=== PATIENT | male | born 1975 | race Caucasian/White ===

== ENCOUNTER 2018-04-17 19:26 | Emergency (ER) | payer OTHER ==
[2018-04-17] MEDS ORDERED: GABAPENTIN 300 MG CAP PO ONE ×2 (19:37→21:04)
[2018-04-17] MEDS ORDERED: DIAZEPAM 5 MG TAB PO ONE ×2 (19:37→21:04)
[2018-04-17] MEDS ORDERED: LIDOCAINE 4%/MENTHOL 1% PATCH TD ONE (19:37)
[2018-04-17] MEDS ORDERED: OXYCODONE/APAP 5/325 TAB PO ONE ×2 (19:38→21:04)
--- NOTE | 2018-04-17 19:39 | EDPHY ---
H & P Stated Complaint: Slip on ice, Fell straight, Lower back and R side pain Time Seen by Provider: 04/17/18 19:35 HPI/ROS: HPI: This is a 43-year-old male who presents with Chief Complaint: Slip on ice, Fell straight, Lower back and R side pain Location: Mid and lower back Quality: Injury Duration: 1 hr prior to arrival Signs and Symptoms: No bleeding, no radiation, no numbness, no weakness, no tingling, no incontinence, + decreased range of motion, no swelling, + pain, no fever Timing: Acute Severity: 02/12 Context: Patient was walking out of his driveway when he accidentally slipped on the ice landing on mid and back on the right side. He sustained an abrasion to the right mid and lower back. Denies LOC/head injury/neck pain/dizziness/ nausea/vomiting/amnesia. He was slow to get up but able to be ambulatory with no assistance. Denies change in bowel or bladder habits. Denies any radiation , weakness. Pain is increased with any range of motion. Modifying Factors: None Comment: ROS: A comprehensive 10 system review of systems is otherwise negative aside from elements mentioned in the history of present illness. MEDICAL/SURGICAL/SOCIAL HISTORY: Medical history: Generally healthy. Does not take any regular medications. Surgical history: Denies Social history: Never smoked. . CONSTITUTIONAL: Polite and cooperative, mild distress, middle-aged white male, awake and alert HEENT: Atraumatic and normocephalic. NECK: supple, no midline tenderness, flexion 45 degrees, extension 45 degrees, right and left lateral flexion 45 degrees. No meningismus. Cardiovascular: Normal S1/S2, regular rate, regular rhythm, without murmur rub or gallop. PULMONARY/CHEST: Symmetrical and nontender. no crepitus. Clear to auscultation bilaterally. Good air movement. No accessory muscle usage. ABDOMEN: Soft, nondistended, nontender, no ecchymosis. PELVIC: no pain with rocking; bilateral hips flexion 125 degrees, extension 30 degrees, with no pain internal rotation and no pain external rotation. BACK: No midline tenderness, right-sided lower thoracic and upper lumbar reproducible paraspinous tenderness; abrasion noted to the lower thoracic and upper lumbar right side measuring approximately 6 in x 2 in-no active bleeding. no paraspinous spasm, deep tendon reflexes 2/2, mild pain with straight leg raise, No foot drop. Achilles reflexes are equal bilaterally. EXTREMITIES: 2/2 pulses, strength 5/5, DIP/PIP/MCP flexion/extension intact with good light touch sensation. no deformities, no clubbing, no cyanosis or edema. NEUROLOGICAL: no focal neuro deficits. GCS 15. Light touch sensation intact. SKIN: Warm and dry, no erythema. no rash. Good capillary refill. Source: Patient Exam Limitations: No limitations - Personal History Current Tetanus Diphtheria and Acellular Pertussis (TDAP): Yes - Medical/Surgical History Hx Asthma: No Hx Chronic Respiratory Disease: No Hx Diabetes: No Hx Cardiac Disease: No Hx Renal Disease: No Hx Cirrhosis: No Hx Alcoholism: No Hx HIV/AIDS: No Hx Splenectomy or Spleen Trauma: No Other PMH: Denies - Social History Smoking Status: Never smoked Constitutional: Initial Vital Signs Temperature (C) 36.9 C 04/17/18 19:30 Heart Rate 63 04/17/18 19:30 Respiratory Rate 17 04/17/18 19:30 Blood Pressure 151/94 H 04/17/18 19:30 O2 Sat (%) 98 04/17/18 19:30 O2 Delivery Mode Room Air Allergies/Adverse Reactions: No Known Allergies Allergy (Unverified 04/17/18 19:27) Home Medications: Medication Instructions Recorded Cyclobenzaprine [Flexeril 10 MG 10 mg PO TID PRN #15 tab 04/17/18 (*)] oxyCODONE/APAP 5/325 [Percocet 1 - 2 tab PO Q4H PRN #12 tab 04/17/18 5/325 (*)] Medical Decision Making - Diagnostics Imaging Results: Imaging Impressions Lumbar Spine X-Ray 04/17/18 19:38 Impression: Nothing acute in the lumbar spine radiographically. Thoracic Spine X-Ray 04/17/18 19:38 Impression: Early arthritis. Nothing acute radiographically. Lumbar Spine MRI 04/17/18 22:06 Impression: 1. No evidence for significant canal or foraminal stenosis at any level. 2. Facet arthropathy predominantly at L4-L5 and L5-S1 bilaterally. 3. Mild bilateral foraminal stenosis at L4-L5, and mild to moderate at L5-S1, due to small central disk bulge and facet disease. Findings and recommendations discussed with Allie Reeder at 11:20 p.m. on 2017. Final report concurs with initial preliminary interpretation. Thoracic Spine MRI 04/17/18 22:06 Impression: Normal MRI of the thoracic spine without contrast. Findings and recommendations discussed with Allie Reeder at 11:21 p.m. on 2017. Final report concurs with initial preliminary interpretation. ED Course/Re-evaluation: Vital signs reviewed and stable upon arrival. No bandlike tenderness and no neurological deficits to warrant emergent MRI in the emergency room. Will start with thoracic and lumbar x-ray plain films Given Lidoderm patch, gabapentin 600 mg, Valium 5 mg and Percocet 2054: Thoracic and lumbar x-ray my read show no acute fracture. 2199: Patient unable to ambulate and passed road test. Decision made to place IV and obtain MRI of the thoracic and lumbar spine. Given IV Decadron, IV Toradol, IV Valium 8: Called by radiologist Dr. Liu, who advised that thoracic MRI is essentially unremarkable for any thoracic acute process. MRI lumbar spine shows mild bilateral facet arthropathy L3-S1. No fracture, disc herniation, cord compression. Patient given a prepack for Flexeril and Percocet along with a walker per request. No signs of neurovascular compromise/tenting of skin/compartment syndrome/ extremities and joints examined above and below area of concern and are neurovascularly intact/cauda equina syndrome/epidural hematoma/diskitis. This patient was seen under the supervision of my secondary supervising physician. I evaluated care for this patient independently. Discussed this patient with Dr. Robert. Differential Diagnosis: Back pain including but not limited to muscular pain, herniated disc, spine fracture, intra-abdominal causes and urinary tract infection. - Data Points Medications Given: Discontinued Medications Cyclobenzaprine HCl (Flexeril 10 Mg Prepack#3) 1 btl TAKEHOME EDNOW ONE Stop: 04/17/18 23:30 Last Admin: 04/17/18 23:39 Dose: 1 btl Dexamethasone (Decadron Injection) 8 mg IVP EDNOW ONE Stop: 04/17/18 22:07 Last Admin: 04/17/18 22:14 Dose: 8 mg Diazepam (Valium) 5 mg PO EDNOW ONE Stop: 04/17/18 19:38 Last Admin: 04/17/18 19:56 Dose: Not Given Diazepam (Valium) 5 mg PO EDNOW ONE Stop: 04/17/18 21:05 Last Admin: 04/17/18 21:11 Dose: 5 mg Diazepam (Valium) 5 mg IVP EDNOW ONE Stop: 04/17/18 22:07 Last Admin: 04/17/18 22:14 Dose: 5 mg Gabapentin (Neurontin) 600 mg PO EDNOW ONE Stop: 04/17/18 19:38 Last Admin: 04/17/18 19:56 Dose: Not Given Gabapentin (Neurontin) 600 mg PO EDNOW ONE Stop: 04/17/18 21:05 Last Admin: 04/17/18 21:11 Dose: 600 mg Ketorolac Tromethamine (Toradol) 15 mg IVP EDNOW ONE Stop: 04/17/18 22:07 Last Admin: 04/17/18 22:14 Dose: 15 mg Miscellaneous Information (Patch Removal) 1 ea TD DAILY21 HERIBERTO Stop: 10/14/18 20:59 Last Admin: 04/17/18 21:12 Dose: 1 ea Miscellaneous Medication (Icy Hot Lidocaine/Menthol 4%/1% Patch) 1 patch TD EDNOW ONE Stop: 04/17/18 19:38 Last Admin: 04/17/18 19:54 Dose: 1 patch Oxycodone/Acetaminophen (Percocet 5/325) 1 tab PO EDNOW ONE Stop: 04/17/18 19:39 Last Admin: 04/17/18 19:56 Dose: Not Given Oxycodone/Acetaminophen (Percocet 5/325) 1 tab PO EDNOW ONE Stop: 04/17/18 21:05 Last Admin: 04/17/18 21:11 Dose: 1 tab Oxycodone/Acetaminophen (Percocet 5/325mg Prepack#4) 1 btl TAKEHOME EDNOW ONE Stop: 04/17/18 23:30 Last Admin: 04/17/18 23:40 Dose: 1 btl Departure - Departure Disposition: Home, Routine, Self-Care Clinical Impression: Lumbar facet arthropathy Strain of thoracic spine Qualifiers: Encounter type: initial encounter Qualified Code(s): S29.019A - Strain of muscle and tendon of unspecified wall of thorax, initial encounter Strain of lumbar spine Qualifiers: Encounter type: initial encounter Qualified Code(s): S39.012A - Strain of muscle, fascia and tendon of lower back, initial encounter Abrasion of back wall of thorax Qualifiers: Encounter type: initial encounter Laterality: right Qualified Code(s): S20.411A - Abrasion of right back wall of thorax, initial encounter Condition: Good Instructions: Oxycodone/Acetaminophen (By mouth), Cyclobenzaprine (By mouth), Low Back Strain (ED), Thoracic Back Strain (ED) Additional Instructions: Take Tylenol 650 mg every 4 hours and/or Ibuprofen 600 mg every 8 hours with food as needed for pain. Use Percocet every 6 hours as needed for severe/break through pain. Do not use Tylenol and Percocet concomitantly. Take Flexeril every 8 hr as needed for muscle spasms. Follow up with Neurosurgery in 5-7 days if symptoms persist at which time they will evaluate and recommend with you if conservative management versus MRI is indicated. The x-rays obtained in the emergency department today demonstrate no evidence of an obvious fracture. Sometimes fractures are not obvious on the initial set of x-rays performed in the ED. For this reason, you should have repeat x-rays performed in 7-10 days if you are having any pain exclude the possibility of an occult fracture. Return to the ER immediately if you have new or worsening back pain, fevers/ chills, flu like symptoms, incontinence or inability to urinate or defecate, weakness, paralysis, or any other symptom that concerns you Referrals: Shweta Gonzalez MD [Primary Care Provider] - As per Instructions Dania Hogue MD [Medical Doctor] - As per Instructions Prescriptions: Cyclobenzaprine [Flexeril 10 MG (*)] 10 mg PO TID PRN #15 tab PRN Reason: Spasms oxyCODONE/APAP 5/325 [Percocet 5/325 (*)] 1 - 2 tab PO Q4H PRN #12 tab PRN Reason: Pain, Severe
[2018-04-17] MEDS ORDERED: PATCH REMOVAL 1 EA PATCH TD SCH (21:00)
[2018-04-17] MEDS ORDERED: DIAZEPAM 5 MG/ML 1 ML SYR IVP ONE (22:06)
[2018-04-17] MEDS ORDERED: DEXAMETHASONE 4 MG/ML VIAL IVP ONE (22:06)
[2018-04-17] MEDS ORDERED: KETOROLAC 15 MG/1 ML SDV IVP ONE (22:06)
[2018-04-17] MEDS ORDERED: OXYCODONE/APAP 5/325MG PREPACK#4 BTL TAKEHOME ONE (23:29)
[2018-04-17] MEDS ORDERED: CYCLOBENZAPRINE 10MG PREPACK#3 BTL TAKEHOME ONE (23:29)
[2018-04-17 23:40] VITALS: BP 126/67
== END 2018-04-17 23:38 | disposition home or self-care (01) ==
DX: S39.012A Strain of muscle, fascia and tendon of lower back, initial encounter (principal); S29.019A Strain of muscle and tendon of unspecified wall of thorax, initial encounter; S20.411A Abrasion of right back wall of thorax, initial encounter; W00.0XXA Fall on same level due to ice and snow, initial encounter; Y92.018 Other place in single-family (private) house as the place of occurrence of the external cause; Y93.9 Activity, unspecified
CPT/HCPCS: 96374; J1100; J1885; J3360